=== PATIENT | female | born 1955 | race Caucasian/White ===

== ENCOUNTER 2019-01-01 12:15 | Emergency (ER) | payer MEDICARE ==
[~2019-01-01] VITALS: Ht 167.6 cm; Wt 135.9 kg
[2019-01-01] MEDS ORDERED: LYRICA100 MG PO (12:57)
[2019-01-01] MEDS ORDERED: PROTONIX TR40 M1 PO (12:58)
[2019-01-01 12:59] LABS: BASO # 0.1 (0.02-0.10); EOS # 0.8 (0.04-0.40); EOS % 7.8 % (1.0-5.0); HEMATOCRIT 42.4 % (37.0-47.0); HEMOGLOBIN 12.6 g/dL (12.5-16.0); LYMPH# 2.5 (1.50-4.00); MEAN CELL VOLUME 93 fl (78-100); MEAN CORPUSCULAR HEMOGLOBIN 28 pg (27-31); MEAN CORPUSCULAR HGB CONC 30 g/dL (33-37); MEAN PLATELET VOLUME 10.2 fl (7.4-10.4); MONO # 0.7 (0.20-0.80); NEU # 5.7 (1.40-6.50); PLATELET COUNT 265 K/mm3 (130-400); RED BLOOD COUNT 4.54 M/mm3 (4.10-5.30); RED CELL DISTRIBUTION WIDTH 14.2 % (11.5-14.5); WHITE BLOOD COUNT 9.7 K/mm3 (4.8-10.8)
[2019-01-01] MEDS ORDERED: ESTRACE1 M1 PO (12:59)
[2019-01-01] MEDS ORDERED: BACLOFEN20 MG PO (13:01)
[2019-01-01] MEDS ORDERED: LINZESS290 MCG PO (13:02)
[2019-01-01] MEDS ORDERED: BENADRYL25 M2 PO (13:02)
[2019-01-01] MEDS ORDERED: METOPROLOL TAR100 M1 PO (13:04)
[2019-01-01] MEDS ORDERED: BENAZEPRIL40 MG PO (13:04)
[2019-01-01] MEDS ORDERED: NORVASC 10MG10 MG PO (13:04)
[2019-01-01 13:12] LABS: ALBUMIN 3.7 g/dL (3.5-5.0); CALCIUM 9.3 mg/dL (8.4-10.2); POTASSIUM 4.6 mmol/L (3.6-5.0); TOTAL BILIRUBIN 0.4 mg/dL (0.2-1.3); TOTAL PROTEIN 7.1 g/dL (6.3-8.2)
[2019-01-01 13:21] LABS: TROPONIN-I < 0.03 ng/mL (0.00-0.06)
[2019-01-01] MEDS ORDERED: ASPIRIN E.C. 8181 MG PO (13:54)
[2019-01-01] MEDS ORDERED: PRISTIQ100 MG PO ×2 (13:54→14:09)
[2019-01-01] MEDS ORDERED: MELATONIN10 M2 PO (13:55)
[2019-01-01] MEDS ORDERED: GARLIC OIL1000 M1 PO (13:55)
[2019-01-01] MEDS ORDERED: LIPITOR20 M2 PO (13:56)
[2019-01-01] MEDS ORDERED: HAIR SKIN NAIL1 EACH PO (13:56)
[2019-01-01] MEDS ORDERED: LASIX40 M1 PO (13:57)
[2019-01-01] MEDS ORDERED: [UNRECOGNIZED DRUG - OTHER] PO (13:58)
[2019-01-01] MEDS ORDERED: LOTREL 10 MG-401 CAP PO (13:58)
[2019-01-01] MEDS ORDERED: DETROL LA 4MG4 MG PO ×2 (13:59→14:09)
[2019-01-01] MEDS ORDERED: SYNTHROID112 MCG PO (13:59)
[2019-01-01] MEDS ORDERED: MULTIVITAMIN1 SGL PO (14:00)
[2019-01-01] MEDS ORDERED: CO Q-10400 MG PO (14:00)
[2019-01-01 14:38] VITALS: BP 120/72
== END 2019-01-01 15:15 | disposition home or self-care (01) ==
LOC: ED 12:15
PROVIDERS: Nurse Practitioner Primary Care
DX: R07.89 Other chest pain (principal); I25.10 Atherosclerotic heart disease of native coronary artery without angina pectoris; K21.9 Gastro-esophageal reflux disease without esophagitis; I10 Essential (primary) hypertension; Z76.0 Encounter for issue of repeat prescription; Z79.82 Long term (current) use of aspirin; Z90.49 Acquired absence of other specified parts of digestive tract; Z90.710 Acquired absence of both cervix and uterus
CPT/HCPCS: J2405

== ENCOUNTER → 2019-01-02 | Outpatient (CLI) | payer MEDICARE ==
[2019-01-01 14:38] VITALS: BP 120/72
[~2019-01-02] MED LIST: ASPIRIN E.C. 8181 MG PO; BACLOFEN20 MG PO; BENADRYL25 M2 PO; BENAZEPRIL40 MG PO; CO Q-10400 MG PO; DETROL LA 4MG4 MG PO; ESTRACE1 M1 PO; GARLIC OIL1000 M1 PO; HAIR SKIN NAIL1 EACH PO; LASIX40 M1 PO; LINZESS290 MCG PO; LIPITOR20 M2 PO; LOTREL 10 MG-401 CAP PO; LYRICA100 MG PO; MELATONIN10 M2 PO; METOPROLOL TAR100 M1 PO; MULTIVITAMIN1 SGL PO; NORVASC 10MG10 MG PO; PRISTIQ100 MG PO; PROTONIX TR40 M1 PO; SYNTHROID112 MCG PO; [UNRECOGNIZED DRUG - OTHER] PO
[2019-01-02 17:26] LABS: BASO # 0.1 (0.02-0.10); EOS % 7.3 % (1.0-5.0); HEMATOCRIT 45.1 % (37.0-47.0); HEMOGLOBIN 13.3 g/dL (12.5-16.0); LYMPH# 3.5 (1.50-4.00); MEAN CELL VOLUME 92 fl (78-100); MEAN CORPUSCULAR HEMOGLOBIN 27 pg (27-31); MEAN CORPUSCULAR HGB CONC 30 g/dL (33-37); MEAN PLATELET VOLUME 10.3 fl (7.4-10.4); MONO # 0.9 (0.20-0.80); PLATELET COUNT 337 K/mm3 (130-400); RED BLOOD COUNT 4.88 M/mm3 (4.10-5.30); RED CELL DISTRIBUTION WIDTH 14.3 % (11.5-14.5)
[2019-01-02 17:39] LABS: EOS # 1.1 (0.04-0.40); NEU # 9.4 (1.40-6.50)
[2019-01-02 17:40] LABS: ALBUMIN 4.1 g/dL (3.5-5.0); AST-SGOT 25 U/L (14-36); CALCIUM 9.6 mg/dL (8.4-10.2); CARBON DIOXIDE 30 mmol/L (22-30); GLUCOSE 114 mg/dL (65-105); POTASSIUM 4.1 mmol/L (3.6-5.0); SODIUM 142 mmol/L (137-145); TOTAL BILIRUBIN 0.4 mg/dL (0.2-1.3); TOTAL PROTEIN 7.7 g/dL (6.3-8.2)
[2019-01-02 17:43] LABS: ALT/SGPT < 3 U/L (9-52)
== END ==
LOC: LAB 16:42
PROVIDERS: Family Medicine
DX: M48.54XA Collapsed vertebra, not elsewhere classified, thoracic region, initial encounter for fracture (principal); M47.812 Spondylosis without myelopathy or radiculopathy, cervical region; M47.817 Spondylosis without myelopathy or radiculopathy, lumbosacral region; M43.17 Spondylolisthesis, lumbosacral region; M48.061 Spinal stenosis, lumbar region without neurogenic claudication; G35 Multiple sclerosis; Z00.00 Encounter for general adult medical examination without abnormal findings; R53.83 Other fatigue; E55.9 Vitamin D deficiency, unspecified; Z86.39 Personal history of other endocrine, nutritional and metabolic disease

== ENCOUNTER → 2019-01-08 | Outpatient (CLI) | payer MEDICARE ==
[2019-01-01 14:38] VITALS: BP 120/72
[~2019-01-08] MED LIST changes: +AMOXICILLIN875 MG PO; +NORCO 325 MG-51 TA1 PO
== END ==
LOC: VAS 16:33 → RAD 16:45
DX: R07.9 Chest pain, unspecified (principal); I27.20 Pulmonary hypertension, unspecified; Z86.79 Personal history of other diseases of the circulatory system

== ENCOUNTER 2019-02-15 21:31 | Emergency (ER) | payer MEDICARE, MEDICAID ==
[~2019-02-15] VITALS: Ht 167.6 cm; Wt 135.9 kg
[~2019-02-15 21:31] MED LIST changes: -AMOXICILLIN875 MG PO; -NORCO 325 MG-51 TA1 PO
[2019-02-15] MEDS ORDERED: AMOXICILLIN875 MG PO (21:48)
[2019-02-15] MEDS ORDERED: NORCO 325 MG-51 TA1 PO (23:35)
[2019-02-15 23:55] VITALS: BP 141/84
== END 2019-02-15 23:55 | disposition home or self-care (01) ==
LOC: ED 21:31
DX: S82.832A Other fracture of upper and lower end of left fibula, initial encounter for closed fracture (principal); I10 Essential (primary) hypertension; N39.0 Urinary tract infection, site not specified; Z79.82 Long term (current) use of aspirin; X50.1XXA Overexertion from prolonged static or awkward postures, initial encounter; Y92.003 Bedroom of unspecified non-institutional (private) residence as the place of occurrence of the external cause
CPT/HCPCS: L4386

== ENCOUNTER 2019-04-30 14:56 | Emergency (ER) | payer MEDICARE, MEDICAID ==
[~2019-04-30] VITALS: Wt 138.9 kg
[~2019-04-30 14:56] MED LIST changes: +AMOXICILLIN875 MG PO; +NORCO 325 MG-51 TA1 PO
[2019-04-30 15:53] LABS: HEMATOCRIT 40.4 % (37.0-47.0); HEMOGLOBIN 12.1 g/dL (12.5-16.0); LYMPH# 2.6 (1.50-4.00); MEAN CELL VOLUME 96 fl (78-100); MEAN CORPUSCULAR HEMOGLOBIN 29 pg (27-31); MEAN CORPUSCULAR HGB CONC 30 g/dL (33-37); MEAN PLATELET VOLUME 9.9 fl (7.4-10.4); MONO # 0.7 (0.20-0.80); NEU # 6.9 (1.40-6.50); PLATELET COUNT 240 K/mm3 (130-400); RED BLOOD COUNT 4.22 M/mm3 (4.10-5.30); RED CELL DISTRIBUTION WIDTH 13.7 % (11.5-14.5); WHITE BLOOD COUNT 10.9 K/mm3 (4.8-10.8)
[2019-04-30 16:09] LABS: ALBUMIN 3.4 g/dL (3.4-4.8); ALT/SGPT 16 U/L (0-55); AST-SGOT 16 U/L (5-34); CALCIUM 9.2 mg/dL (8.3-10.5); CARBON DIOXIDE 29 mmol/L (23-31); GLUCOSE 155 mg/dL (65-105); POTASSIUM 3.5 mmol/L (3.5-5.1); SODIUM 142 mmol/L (136-145); TOTAL BILIRUBIN 0.2 mg/dL (0.2-1.2); TOTAL PROTEIN 6.4 g/dL (6.2-8.1)
[2019-04-30 16:10] LABS: EOS # 0.7 (0.04-0.40)
[2019-04-30 16:18] LABS: PROTHROMBIN TIME 8.8 SECONDS (9.0-12.0)
[2019-04-30 16:28] LABS: TROPONIN-I < 0.03 ng/mL (<0.030)
[2019-04-30 17:32] LABS: D-DIMER 0.51 mg/L FEU (0.15-0.50)
[2019-04-30 21:46] VITALS: BP 148/81
== END 2019-04-30 21:50 | disposition short-term general hospital (02) ==
LOC: ED 14:56
PROVIDERS: Nurse Practitioner Primary Care
DX: I21.4 Non-ST elevation (NSTEMI) myocardial infarction (principal); I10 Essential (primary) hypertension; K21.9 Gastro-esophageal reflux disease without esophagitis; F32.9 Major depressive disorder, single episode, unspecified; F41.9 Anxiety disorder, unspecified; G43.909 Migraine, unspecified, not intractable, without status migrainosus; G47.33 Obstructive sleep apnea (adult) (pediatric); G35 Multiple sclerosis; Z90.49 Acquired absence of other specified parts of digestive tract; Z90.710 Acquired absence of both cervix and uterus; Z87.891 Personal history of nicotine dependence; Z86.73 Personal history of transient ischemic attack (TIA), and cerebral infarction without residual deficits
CPT/HCPCS: J1885; J2060; Q9967

== ENCOUNTER → 2019-05-28 | Day surgery (SDC) | payer MEDICARE, MEDICAID ==
[2019-04-30 21:46] VITALS: BP 148/81
== END ==
LOC: MSO 07:35
DX: K29.50 Unspecified chronic gastritis without bleeding (principal); K25.9 Gastric ulcer, unspecified as acute or chronic, without hemorrhage or perforation; K44.9 Diaphragmatic hernia without obstruction or gangrene; R13.13 Dysphagia, pharyngeal phase; E66.01 Morbid (severe) obesity due to excess calories; Z68.41 Body mass index [BMI] 40.0-44.9, adult; I10 Essential (primary) hypertension; E07.9 Disorder of thyroid, unspecified; M81.0 Age-related osteoporosis without current pathological fracture; G35 Multiple sclerosis; G43.909 Migraine, unspecified, not intractable, without status migrainosus; Z90.49 Acquired absence of other specified parts of digestive tract; Z90.710 Acquired absence of both cervix and uterus; F41.9 Anxiety disorder, unspecified; F32.9 Major depressive disorder, single episode, unspecified; Z79.899 Other long term (current) drug therapy; Z79.82 Long term (current) use of aspirin; H40.9 Unspecified glaucoma; Z87.891 Personal history of nicotine dependence; Z80.9 Family history of malignant neoplasm, unspecified; Z83.3 Family history of diabetes mellitus; Z82.49 Family history of ischemic heart disease and other diseases of the circulatory system; Z88.1 Allergy status to other antibiotic agents
CPT/HCPCS: 00731; J2704; J3010; J7120

== ENCOUNTER → 2019-09-10 | Outpatient (CLI) | payer MEDICARE, MEDICAID | LOC: LAB 10:27 | DX: I25.10 Atherosclerotic heart disease of native coronary artery without angina pectoris (principal); Z86.39 Personal history of other endocrine, nutritional and metabolic disease ==

== ENCOUNTER → 2019-09-17 | Outpatient (CLI) | payer MEDICARE, MEDICAID ==
[2019-09-17 10:31] LABS: EOS # 0.1 (0.04-0.40); HEMATOCRIT 42.2 % (37.0-47.0); HEMOGLOBIN 13.3 g/dL (12.5-16.0); LYMPH# 2.3 (1.50-4.00); MEAN CELL VOLUME 97 fl (78-100); MEAN CORPUSCULAR HEMOGLOBIN 31 pg (27-31); MEAN CORPUSCULAR HGB CONC 32 g/dL (33-37); MEAN PLATELET VOLUME 9.1 fl (7.4-10.4); MONO # 0.7 (0.20-0.80); NEU # 8.9 (1.40-6.50); PLATELET COUNT 297 K/mm3 (130-400); RED BLOOD COUNT 4.34 M/mm3 (4.10-5.30); RED CELL DISTRIBUTION WIDTH 13.7 % (11.5-14.5); WHITE BLOOD COUNT 12.1 K/mm3 (4.8-10.8)
[2019-09-17 10:42] LABS: ALBUMIN 3.3 g/dL (3.4-4.8); POTASSIUM 4.2 mmol/L (3.5-5.1)
[2019-09-17 10:43] LABS: CALCIUM 9.8 mg/dL (8.3-10.5)
[2019-09-17 10:45] LABS: TOTAL PROTEIN 6.5 g/dL (6.2-8.1)
[2019-09-17 10:46] LABS: TOTAL BILIRUBIN 0.4 mg/dL (0.2-1.2)
== END ==
LOC: LAB 10:15
PROVIDERS: Family Medicine
DX: Z01.818 Encounter for other preprocedural examination (principal)

== ENCOUNTER 2019-10-22 13:58 | Observation (INO) | payer MEDICARE, MEDICAID ==
[~2019-10-22] VITALS: Ht 167.6 cm; Wt 123.2 kg
[2019-10-22 14:22] VITALS: BP 117/81
[2019-10-22 15:11] LABS: ALBUMIN 3.4 g/dL (3.4-4.8)
[2019-10-22 15:12] LABS: POTASSIUM 4.2 mmol/L (3.5-5.1)
[2019-10-22 15:13] LABS: CALCIUM 9.5 mg/dL (8.3-10.5)
[2019-10-22 15:14] LABS: TOTAL PROTEIN 6.7 g/dL (6.2-8.1)
[2019-10-22 15:16] LABS: TOTAL BILIRUBIN 0.5 mg/dL (0.2-1.2)
[2019-10-22 15:35] LABS: EOS # 0.1 (0.04-0.40); EOS % 0.6 % (1.0-5.0); HEMATOCRIT 42.2 % (37.0-47.0); HEMOGLOBIN 13.3 g/dL (12.5-16.0); LYMPH# 2.5 (1.50-4.00); MEAN CELL VOLUME 100 fl (78-100); MEAN CORPUSCULAR HEMOGLOBIN 32 pg (27-31); MEAN CORPUSCULAR HGB CONC 32 g/dL (33-37); MEAN PLATELET VOLUME 9.2 fl (7.4-10.4); MONO # 0.8 (0.20-0.80); PLATELET COUNT 283 K/mm3 (130-400); RED BLOOD COUNT 4.22 M/mm3 (4.10-5.30); WHITE BLOOD COUNT 13.9 K/mm3 (4.8-10.8)
[2019-10-22 15:39] VITALS: BP 124/80
[2019-10-22 15:40] LABS: NEU # 10.6 (1.40-6.50)
[2019-10-22 17:12] VITALS: BP 138/82
[2019-10-22] MEDS ORDERED: NORVASC 10MG10 MG PO (18:09)
[2019-10-22] MEDS ORDERED: TRAMADOL 50 MG TAB PO (18:09)
[2019-10-22] MEDS ORDERED: LEVOTHYROXIN0.137 MG PO (20:42)
[2019-10-22] MEDS ORDERED: FISH OIL1 IU PO (20:43)
[2019-10-22] MEDS ORDERED: GOOD NEIGHBOR500 M2 PO (20:45)
[2019-10-22] MEDS ORDERED: CARVEDILOL25 MG PO (20:48)
[2019-10-22 22:15] LABS: URINE APPEARANCE CLOUDY; URINE BILIRUBIN NEGATIVE (NEGATIVE); URINE BLOOD NEGATIVE (NEGATIVE); URINE COLOR YELLOW; URINE GLUCOSE NEGATIVE (NEGATIVE); URINE KETONE NEGATIVE (NEGATIVE); URINE LEUKOCYTE ESTERASE NEGATIVE (NEGATIVE); URINE NITRATE NEGATIVE (NEGATIVE); URINE PROTEIN(semi-quant) TRACE mg/dL (NEGATIVE); URINE UROBILINOGEN NORMAL (NORMAL); URINE WBC 0-1 /hpf (0-3)
[2019-10-22 22:16] LABS: URINE MUCUS PRESENT (NOT PRESENT)
[2019-10-22 22:44] VITALS: BP 132/84
[2019-10-23 01:54] VITALS: BP 127/86
[2019-10-23 05:36] VITALS: BP 121/78
[2019-10-23 10:20] VITALS: BP 120/81
[2019-10-23 14:15] VITALS: BP 141/91
[2019-10-23 18:00] VITALS: BP 120/79
== END 2019-10-23 11:42 | disposition other institution (70) ==
LOC: MED/SURG 13:58
PROVIDERS: ADMIT Family Medicine
DX: R29.818 Other symptoms and signs involving the nervous system (principal); R53.81 Other malaise; T81.49XA Infection following a procedure, other surgical site, initial encounter; I25.10 Atherosclerotic heart disease of native coronary artery without angina pectoris; I10 Essential (primary) hypertension; E03.9 Hypothyroidism, unspecified; F32.9 Major depressive disorder, single episode, unspecified; F41.9 Anxiety disorder, unspecified; M85.80 Other specified disorders of bone density and structure, unspecified site; M51.36 Other intervertebral disc degeneration, lumbar region; K58.0 Irritable bowel syndrome with diarrhea; R32 Unspecified urinary incontinence; H40.9 Unspecified glaucoma; G43.909 Migraine, unspecified, not intractable, without status migrainosus; R60.9 Edema, unspecified; E78.5 Hyperlipidemia, unspecified; G35 Multiple sclerosis; E66.9 Obesity, unspecified; Z79.899 Other long term (current) drug therapy; Z88.1 Allergy status to other antibiotic agents; Z88.2 Allergy status to sulfonamides; Z88.8 Allergy status to other drugs, medicaments and biological substances; Z91.048 Other nonmedicinal substance allergy status
CPT/HCPCS: A4216; G0378; G0379; J0696; J1650; J2270; J2930

== ENCOUNTER 2019-10-23 12:04 | Inpatient (IN) | payer MEDICARE ==
[~2019-10-23] VITALS: Ht 167.6 cm; Wt 124.5 kg
[~2019-10-23 12:04] MED LIST changes: +CARVEDILOL25 MG PO; +FISH OIL1 IU PO; +GOOD NEIGHBOR500 M2 PO; +LEVOTHYROXIN0.137 MG PO; +TRAMADOL 50 MG TAB PO
[2019-10-23 13:02] VITALS: BP 117/75
[2019-10-23 13:20] VITALS: BP 117/75
[2019-10-23 18:03] VITALS: BP 120/79
[2019-10-23 22:07] VITALS: BP 135/84
[2019-10-24 02:10] VITALS: BP 133/96
[2019-10-24 05:49] VITALS: BP 142/98
[2019-10-24 06:23] LABS: HEMOGLOBIN 12.8 g/dL (12.5-16.0); MEAN CELL VOLUME 98 fl (78-100); MEAN CORPUSCULAR HEMOGLOBIN 31 pg (27-31); MEAN CORPUSCULAR HGB CONC 32 g/dL (33-37); MEAN PLATELET VOLUME 9.4 fl (7.4-10.4); PLATELET COUNT 260 K/mm3 (130-400); RED CELL DISTRIBUTION WIDTH 13.5 % (11.5-14.5); WHITE BLOOD COUNT 12.1 K/mm3 (4.8-10.8)
[2019-10-24 06:30] LABS: ALBUMIN 3.3 g/dL (3.4-4.8)
[2019-10-24 06:31] LABS: CALCIUM 9.1 mg/dL (8.3-10.5)
[2019-10-24 06:32] LABS: TOTAL PROTEIN 6.1 g/dL (6.2-8.1)
[2019-10-24 06:34] LABS: TOTAL BILIRUBIN 0.4 mg/dL (0.2-1.2)
[2019-10-24 06:47] LABS: LYMPHOCYTE 4 % (20-51); MONOCYTE 2 % (3-10); NEUTROPHILS 94 % (42-75)
[2019-10-24 07:33] LABS: ERYTHROCYTE SEDIMENTATION RATE 33 mm/hr (0-30)
[2019-10-24 10:20] VITALS: BP 122/77
[2019-10-24 14:19] VITALS: BP 140/92
[2019-10-24 18:51] VITALS: BP 128/66; BP 137/92
[2019-10-24 22:16] VITALS: BP 156/100
[2019-10-25 02:37] VITALS: BP 161/98
[2019-10-25 05:57] VITALS: BP 141/99
[2019-10-25 06:49] LABS: HEMATOCRIT 46.4 % (37.0-47.0); MEAN CELL VOLUME 97 fl (78-100); MEAN CORPUSCULAR HEMOGLOBIN 31 pg (27-31); MEAN CORPUSCULAR HGB CONC 32 g/dL (33-37); MEAN PLATELET VOLUME 9.3 fl (7.4-10.4); PLATELET COUNT 357 K/mm3 (130-400); RED BLOOD COUNT 4.77 M/mm3 (4.10-5.30); RED CELL DISTRIBUTION WIDTH 13.6 % (11.5-14.5); WHITE BLOOD COUNT 16.9 K/mm3 (4.8-10.8)
[2019-10-25 06:59] LABS: ALBUMIN 3.9 g/dL (3.4-4.8); POTASSIUM 4.1 mmol/L (3.5-5.1)
[2019-10-25 07:00] LABS: CALCIUM 9.8 mg/dL (8.3-10.5)
[2019-10-25 07:01] LABS: TOTAL PROTEIN 7.4 g/dL (6.2-8.1)
[2019-10-25 07:03] LABS: TOTAL BILIRUBIN 0.4 mg/dL (0.2-1.2)
[2019-10-25 07:05] LABS: LYMPHOCYTE 6 % (20-51); MONOCYTE 4 % (3-10); NEUTROPHILS 90 % (42-75)
[2019-10-25 10:48] VITALS: BP 147/80
[2019-10-25 14:20] VITALS: BP 139/91
[2019-10-25 17:19] VITALS: BP 138/87
[2019-10-25 22:05] VITALS: BP 144/90
[2019-10-26 01:56] VITALS: BP 137/86
[2019-10-26 05:53] VITALS: BP 152/97
[2019-10-26 09:55] VITALS: BP 159/94
[2019-10-26 13:57] VITALS: BP 147/82
[2019-10-26 18:15] VITALS: BP 148/86
[2019-10-26 21:50] VITALS: BP 157/96
[2019-10-27 01:16] VITALS: BP 158/90
[2019-10-27 05:56] VITALS: BP 158/99
[2019-10-27 07:52] LABS: HEMATOCRIT 41.2 % (37.0-47.0); HEMOGLOBIN 13.8 g/dL (12.5-16.0); MEAN CELL VOLUME 95 fl (78-100); MEAN CORPUSCULAR HEMOGLOBIN 32 pg (27-31); MEAN CORPUSCULAR HGB CONC 34 g/dL (33-37); MEAN PLATELET VOLUME 9.2 fl (7.4-10.4); PLATELET COUNT 284 K/mm3 (130-400); RED BLOOD COUNT 4.34 M/mm3 (4.10-5.30); RED CELL DISTRIBUTION WIDTH 13.3 % (11.5-14.5); WHITE BLOOD COUNT 10.8 K/mm3 (4.8-10.8)
[2019-10-27 08:05] LABS: ALBUMIN 3.6 g/dL (3.4-4.8)
[2019-10-27 08:06] LABS: POTASSIUM 3.7 mmol/L (3.5-5.1)
[2019-10-27 08:08] LABS: TOTAL PROTEIN 6.8 g/dL (6.2-8.1)
[2019-10-27 08:10] LABS: TOTAL BILIRUBIN 0.5 mg/dL (0.2-1.2)
[2019-10-27 08:44] LABS: BAND 1 % (0-10); LYMPHOCYTE 7 % (20-51); MONOCYTE 7 % (3-10); NEUTROPHILS 84 % (42-75)
[2019-10-27 09:22] LABS: CALCIUM 9.4 mg/dL (8.3-10.5)
[2019-10-27 10:22] VITALS: BP 162/100
[2019-10-27 14:29] VITALS: BP 117/79
[2019-10-27 18:00] VITALS: BP 138/90
[2019-10-27 22:50] VITALS: BP 164/98
[2019-10-28] VITALS (7 sets, daily range): BP systolic 138–162; BP diastolic 92–107
[2019-10-28 08:47] LABS: HEMATOCRIT 44.5 % (37.0-47.0); HEMOGLOBIN 14.8 g/dL (12.5-16.0); MEAN CELL VOLUME 95 fl (78-100); MEAN CORPUSCULAR HEMOGLOBIN 31 pg (27-31); MEAN CORPUSCULAR HGB CONC 33 g/dL (33-37); MEAN PLATELET VOLUME 9.3 fl (7.4-10.4); PLATELET COUNT 321 K/mm3 (130-400); RED BLOOD COUNT 4.71 M/mm3 (4.10-5.30); RED CELL DISTRIBUTION WIDTH 13.1 % (11.5-14.5); WHITE BLOOD COUNT 13.2 K/mm3 (4.8-10.8)
[2019-10-28 08:52] LABS: ALBUMIN 3.7 g/dL (3.4-4.8); SODIUM 138 mmol/L (136-145)
[2019-10-28 08:53] LABS: CALCIUM 9.5 mg/dL (8.3-10.5)
[2019-10-28 08:55] LABS: GLUCOSE 184 mg/dL (65-105)
[2019-10-28 08:56] LABS: CARBON DIOXIDE 24 mmol/L (23-31)
[2019-10-28 08:57] LABS: TOTAL BILIRUBIN 0.8 mg/dL (0.2-1.2)
[2019-10-28 09:00] LABS: AST-SGOT 17 U/L (5-34)
[2019-10-28 09:01] LABS: ALT/SGPT 85 U/L (0-55)
[2019-10-28 09:05] LABS: BAND 1 % (0-10); LYMPHOCYTE 8 % (20-51); MONOCYTE 6 % (3-10); NEUTROPHILS 85 % (42-75)
[2019-10-28 09:51] LABS: ERYTHROCYTE SEDIMENTATION RATE 18 mm/hr (0-30)
[2019-10-29] VITALS (7 sets, daily range): BP systolic 114–186; BP diastolic 75–109
[2019-10-30 01:50] VITALS: BP 144/98
[2019-10-30 05:55] VITALS: BP 159/97
[2019-10-30 10:12] VITALS: BP 147/95
[2019-10-30] MEDS ORDERED: NORCO 325 MG-7.1 TA1 PO (11:59)
[2019-10-30] MEDS ORDERED: PRISTIQ100 MG PO (12:00)
[2019-10-30] MEDS ORDERED: AMBIEN10 MG PO (12:01)
[2019-10-30] MEDS ORDERED: PREDNISONE10 MG PO (12:06)
[2019-10-30] MEDS ORDERED: LEVOTHYROXINE100 MC1 PO (12:07)
[2019-10-30] MEDS ORDERED: CLEOCIN HCL300 MG PO (12:08)
[2019-10-30 14:15] VITALS: BP 143/93
== END 2019-10-30 14:00 | disposition home health service (06) | DRG 59 ==
LOC: MED/SURG 12:04
PROVIDERS: Family Medicine; Nurse Practitioner; ADMIT Nurse Practitioner Primary Care
DX: G35 Multiple sclerosis (principal); L03.90 Cellulitis, unspecified; T81.40XA Infection following a procedure, unspecified, initial encounter; R53.81 Other malaise; S30.0XXA Contusion of lower back and pelvis, initial encounter; M54.5 Low back pain; E03.9 Hypothyroidism, unspecified; E78.5 Hyperlipidemia, unspecified; I10 Essential (primary) hypertension; I25.10 Atherosclerotic heart disease of native coronary artery without angina pectoris; F32.9 Major depressive disorder, single episode, unspecified; G47.00 Insomnia, unspecified; E66.9 Obesity, unspecified; M19.90 Unspecified osteoarthritis, unspecified site; F41.9 Anxiety disorder, unspecified; M85.80 Other specified disorders of bone density and structure, unspecified site; G43.909 Migraine, unspecified, not intractable, without status migrainosus; H40.9 Unspecified glaucoma; M51.36 Other intervertebral disc degeneration, lumbar region; K58.0 Irritable bowel syndrome with diarrhea; R32 Unspecified urinary incontinence; G47.33 Obstructive sleep apnea (adult) (pediatric); J30.9 Allergic rhinitis, unspecified; Z79.890 Hormone replacement therapy; Z87.891 Personal history of nicotine dependence
CPT/HCPCS: A4216; J0696; J1650; J2060; J2270; J2930; J3301; Q9967

== ENCOUNTER 2019-10-31 18:10 | Inpatient (IN) | payer MEDICARE, MEDICAID ==
[~2019-10-31] VITALS: Ht 167.6 cm; Wt 122.7 kg
[~2019-10-31 18:10] MED LIST changes: +AMBIEN10 MG PO; +CLEOCIN HCL300 MG PO; +LEVOTHYROXINE100 MC1 PO; +NORCO 325 MG-7.1 TA1 PO; +PREDNISONE10 MG PO
[2019-10-31 18:24] VITALS: BP 156/96
[2019-10-31 19:02] LABS: HEMATOCRIT 42.3 % (37.0-47.0); HEMOGLOBIN 14.1 g/dL (12.5-16.0); MEAN CELL VOLUME 96 fl (78-100); MEAN CORPUSCULAR HEMOGLOBIN 32 pg (27-31); MEAN CORPUSCULAR HGB CONC 33 g/dL (33-37); MEAN PLATELET VOLUME 9.7 fl (7.4-10.4); PLATELET COUNT 245 K/mm3 (130-400); RED CELL DISTRIBUTION WIDTH 12.7 % (11.5-14.5); WHITE BLOOD COUNT 17.1 K/mm3 (4.8-10.8)
[2019-10-31 19:04] LABS: ALBUMIN 3.4 g/dL (3.4-4.8); POTASSIUM 3.9 mmol/L (3.5-5.1)
[2019-10-31 19:06] LABS: CALCIUM 8.9 mg/dL (8.3-10.5)
[2019-10-31 19:07] LABS: TOTAL PROTEIN 6.2 g/dL (6.2-8.1)
[2019-10-31 19:09] LABS: TOTAL BILIRUBIN 0.8 mg/dL (0.2-1.2)
[2019-10-31 19:22] LABS: LYMPHOCYTE 6 % (20-51); MONOCYTE 4 % (3-10); NEUTROPHILS 90 % (42-75)
[2019-11-01 06:04] VITALS: BP 140/87
[2019-11-01 18:23] VITALS: BP 124/85
[2019-11-02 06:13] LABS: PH-URINE 5.5 (5.0 - 8.0); URINE APPEARANCE HAZY; URINE BILIRUBIN 1+ (NEGATIVE); URINE BLOOD TRACE (NEGATIVE); URINE COLOR YELLOW; URINE GLUCOSE NEGATIVE (NEGATIVE); URINE KETONE NEGATIVE (NEGATIVE); URINE LEUKOCYTE ESTERASE NEGATIVE (NEGATIVE); URINE MUCUS PRESENT (NOT PRESENT); URINE NITRATE NEGATIVE (NEGATIVE); URINE PROTEIN(semi-quant) TRACE mg/dL (NEGATIVE); URINE UROBILINOGEN NORMAL (NORMAL)
[2019-11-02 06:20] VITALS: BP 147/88
[2019-11-02 14:37] VITALS: BP 126/84
[2019-11-02 16:50] VITALS: BP 126/84
== END 2019-11-02 17:15 | DRG 948 ==
LOC: MED/SURG 18:10
PROVIDERS: Nurse Practitioner Family; ADMIT Physician Assistant
DX: R53.81 Other malaise (principal); L03.90 Cellulitis, unspecified; I25.10 Atherosclerotic heart disease of native coronary artery without angina pectoris; E66.9 Obesity, unspecified; M54.5 Low back pain; G35 Multiple sclerosis; E03.9 Hypothyroidism, unspecified; I10 Essential (primary) hypertension; F32.9 Major depressive disorder, single episode, unspecified; F41.9 Anxiety disorder, unspecified; M85.80 Other specified disorders of bone density and structure, unspecified site; G43.909 Migraine, unspecified, not intractable, without status migrainosus; H40.9 Unspecified glaucoma; G47.33 Obstructive sleep apnea (adult) (pediatric); J30.9 Allergic rhinitis, unspecified; G47.00 Insomnia, unspecified; M19.90 Unspecified osteoarthritis, unspecified site
CPT/HCPCS: J7512

== ENCOUNTER → 2019-12-06 | Outpatient (CLI) | payer MEDICARE, MEDICAID ==
[2019-12-06 12:32] LABS: EOS # 0.1 (0.04-0.40); EOS % 0.4 % (1.0-5.0); HEMATOCRIT 37.6 % (37.0-47.0); HEMOGLOBIN 12.2 g/dL (12.5-16.0); MEAN CELL VOLUME 101 fl (78-100); MEAN CORPUSCULAR HEMOGLOBIN 33 pg (27-31); MEAN CORPUSCULAR HGB CONC 32 g/dL (33-37); MEAN PLATELET VOLUME 8.9 fl (7.4-10.4); MONO # 0.7 (0.20-0.80); NEU # 8.3 (1.40-6.50); PLATELET COUNT 285 K/mm3 (130-400); RED BLOOD COUNT 3.72 M/mm3 (4.10-5.30); RED CELL DISTRIBUTION WIDTH 14.5 % (11.5-14.5); WHITE BLOOD COUNT 11.2 K/mm3 (4.8-10.8)
[2019-12-06 12:41] LABS: ALBUMIN 3.3 g/dL (3.4-4.8); POTASSIUM 3.4 mmol/L (3.5-5.1)
[2019-12-06 12:42] LABS: CALCIUM 9.6 mg/dL (8.3-10.5)
[2019-12-06 12:44] LABS: TOTAL PROTEIN 6.3 g/dL (6.2-8.1)
[2019-12-06 12:45] LABS: TOTAL BILIRUBIN 0.4 mg/dL (0.2-1.2)
== END ==
LOC: LAB 12:10
PROVIDERS: Family Medicine
DX: J18.9 Pneumonia, unspecified organism (principal); E11.9 Type 2 diabetes mellitus without complications

== ENCOUNTER → 2020-01-09 | Outpatient (CLI) | payer MEDICARE, MEDICAID ==
[2020-01-09 09:47] LABS: EOS # 0.2 (0.04-0.40); EOS % 1.6 % (1.0-5.0); HEMATOCRIT 38.3 % (37.0-47.0); HEMOGLOBIN 11.9 g/dL (12.5-16.0); LYMPH# 2.3 (1.50-4.00); MEAN CELL VOLUME 107 fl (78-100); MEAN CORPUSCULAR HEMOGLOBIN 33 pg (27-31); MEAN CORPUSCULAR HGB CONC 31 g/dL (33-37); MEAN PLATELET VOLUME 8.6 fl (7.4-10.4); MONO # 0.8 (0.20-0.80); PLATELET COUNT 248 K/mm3 (130-400); RED BLOOD COUNT 3.59 M/mm3 (4.10-5.30); RED CELL DISTRIBUTION WIDTH 15.1 % (11.5-14.5); WHITE BLOOD COUNT 10.3 K/mm3 (4.8-10.8)
[2020-01-09 09:54] LABS: ALBUMIN 3.4 g/dL (3.4-4.8)
[2020-01-09 09:55] LABS: POTASSIUM 3.3 mmol/L (3.5-5.1)
[2020-01-09 09:56] LABS: CALCIUM 8.7 mg/dL (8.3-10.5)
[2020-01-09 09:57] LABS: TOTAL PROTEIN 6.1 g/dL (6.2-8.1)
[2020-01-09 09:59] LABS: TOTAL BILIRUBIN 0.4 mg/dL (0.2-1.2)
== END ==
LOC: LAB 09:33
PROVIDERS: Family Medicine
DX: I25.10 Atherosclerotic heart disease of native coronary artery without angina pectoris (principal); R73.9 Hyperglycemia, unspecified

== ENCOUNTER → 2020-07-09 | Outpatient (CLI) | payer MEDICARE, MEDICAID ==
[2020-07-09 16:15] LABS: EOS # 0.4 (0.04-0.40); EOS % 3.7 % (1.0-5.0); HEMATOCRIT 39.3 % (37.0-47.0); HEMOGLOBIN 11.2 g/dL (12.5-16.0); LYMPH# 2.1 (1.50-4.00); MEAN CELL VOLUME 91 fl (78-100); MEAN CORPUSCULAR HEMOGLOBIN 26 pg (27-31); MEAN PLATELET VOLUME 8.9 fl (7.4-10.4); MONO # 0.6 (0.20-0.80); NEU # 6.8 (1.40-6.50); PLATELET COUNT 250 K/mm3 (130-400); RED BLOOD COUNT 4.34 M/mm3 (4.10-5.30); RED CELL DISTRIBUTION WIDTH 15.1 % (11.5-14.5)
[2020-07-09 16:26] LABS: ALBUMIN 3.7 g/dL (3.4-4.8); MEAN CORPUSCULAR HGB CONC 29 g/dL (33-37)
[2020-07-09 16:27] LABS: POTASSIUM 4.5 mmol/L (3.5-5.1)
[2020-07-09 16:28] LABS: CALCIUM 9.4 mg/dL (8.3-10.5)
[2020-07-09 16:31] LABS: TOTAL BILIRUBIN 0.4 mg/dL (0.2-1.2)
== END ==
LOC: LAB 16:03
PROVIDERS: Physician Assistant
DX: Z01.818 Encounter for other preprocedural examination (principal); I25.10 Atherosclerotic heart disease of native coronary artery without angina pectoris; I10 Essential (primary) hypertension; G35 Multiple sclerosis; F32.9 Major depressive disorder, single episode, unspecified; Z86.39 Personal history of other endocrine, nutritional and metabolic disease

== ENCOUNTER → 2020-11-10 | Outpatient (CLI) | payer MEDICARE, MEDICAID ==
[2020-11-10 15:04] LABS: EOS # 0.5 (0.04-0.40); EOS % 5.1 % (1.0-5.0); HEMATOCRIT 32.4 % (37.0-47.0); HEMOGLOBIN 8.3 g/dL (12.5-16.0); LYMPH# 2.2 (1.50-4.00); MEAN CELL VOLUME 84 fl (78-100); MEAN PLATELET VOLUME 9.5 fl (7.4-10.4); MONO # 0.6 (0.20-0.80); NEU # 6.7 (1.40-6.50); PLATELET COUNT 333 K/mm3 (130-400); RED BLOOD COUNT 3.84 M/mm3 (4.10-5.30); RED CELL DISTRIBUTION WIDTH 17.1 % (11.5-14.5); WHITE BLOOD COUNT 10.1 K/mm3 (4.8-10.8)
[2020-11-10 15:11] LABS: MEAN CORPUSCULAR HEMOGLOBIN 22 pg (27-31); MEAN CORPUSCULAR HGB CONC 26 g/dL (33-37)
[2020-11-10 15:14] LABS: POTASSIUM 3.7 mmol/L (3.5-5.1)
[2020-11-10 15:15] LABS: CALCIUM 8.7 mg/dL (8.3-10.5)
== END ==
LOC: LAB 14:38
PROVIDERS: Family Medicine
DX: D64.9 Anemia, unspecified (principal); I10 Essential (primary) hypertension

== ENCOUNTER 2021-04-07 14:07 | Observation (INO) | payer MEDICARE, MEDICAID ==
[~2021-04-07 14:07] MED LIST changes: -GOOD NEIGHBOR500 M2 PO; +TYLENOL 325MG325 MG PO
[2021-04-07] MEDS ORDERED: LEVOTHYROXIN0.137 MG PO (14:40)
[2021-04-07 15:18] VITALS: BP 97/57
[2021-04-07 15:25] LABS: BASO # 0.04 (0.02-0.10); EOS # 0.37 (0.04-0.40); EOS % 2.9 % (1.0-5.0); HEMATOCRIT 35.1 % (37.0-47.0); HEMOGLOBIN 10.3 g/dL (12.5-16.0); LYMPH# 1.43 (1.50-4.00); MEAN CELL VOLUME 83 fl (78-100); MEAN CORPUSCULAR HEMOGLOBIN 25 pg (27-31); MEAN CORPUSCULAR HGB CONC 29 g/dL (33-37); MEAN PLATELET VOLUME 9.3 fl (7.4-10.4); MONO # 0.61 (0.20-0.80); NEU # 10.31 (1.40-6.50); PLATELET COUNT 359 K/mm3 (130-400); RED BLOOD COUNT 4.21 M/mm3 (4.10-5.30); RED CELL DISTRIBUTION WIDTH 18.2 % (11.5-14.5); WHITE BLOOD COUNT 12.8 K/mm3 (4.8-10.8)
[2021-04-07 15:40] LABS: ALBUMIN 3.6 g/dL (3.4-4.8); POTASSIUM 4.2 mmol/L (3.5-5.1)
[2021-04-07 15:42] LABS: CALCIUM 9.9 mg/dL (8.3-10.5)
[2021-04-07 15:43] LABS: TOTAL PROTEIN 7.4 g/dL (6.2-8.1)
[2021-04-07 15:44] LABS: TOTAL BILIRUBIN 0.4 mg/dL (0.2-1.2)
[2021-04-07] MEDS ORDERED: IPRATROPIUM BROM3 M1 IH (15:48)
[2021-04-07 16:06] LABS: LIPASE 14 U/L (8-78)
[2021-04-07] MEDS ORDERED: SERTRALINE HYD100 MG PO (16:24)
[2021-04-07] MEDS ORDERED: GLUCOPHAGE PO (16:24)
[2021-04-07] MEDS ORDERED: RT ALBUTEROL CC18 GM IH (16:25)
[2021-04-07 16:27] LABS: URINE APPEARANCE CLOUDY; URINE COLOR AMBER; URINE GLUCOSE NEGATIVE (NEGATIVE); URINE KETONE TR (NEGATIVE); URINE PROTEIN(semi-quant) 1+ mg/dL (NEGATIVE)
[2021-04-07] MEDS ORDERED: FOLIC ACID1 MG PO (16:27)
[2021-04-07 16:28] LABS: URINE BILIRUBIN 2+ (NEGATIVE); URINE BLOOD 50 ery/uL (NEGATIVE); URINE LEUKOCYTE ESTERASE 2+ (NEGATIVE); URINE NITRATE POSITIVE (NEGATIVE); URINE UROBILINOGEN 1 mg/dL (NORMAL); URINE WBC >50 /hpf (0-3)
[2021-04-07] MEDS ORDERED: COLACE100 M1 PO (16:28)
[2021-04-07] MEDS ORDERED: ZOFRAN4 M2 PO (16:28)
[2021-04-07] MEDS ORDERED: KETOTIFEN5 ML OU (16:29)
[2021-04-07] MEDS ORDERED: RISPERIDONE1 M2 PO (16:30)
[2021-04-07] MEDS ORDERED: RISPERIDONE0.5 M2 PO (16:31)
[2021-04-07] MEDS ORDERED: ISMO 20MG20 MG PO (16:31)
[2021-04-07] MEDS ORDERED: LISINOPRIL10 MG PO (16:32)
[2021-04-07] MEDS ORDERED: CLOPIDOGREL PO (16:32)
[2021-04-07] MEDS ORDERED: TRAMADOL 50 MG TAB PO (16:33)
[2021-04-07] MEDS ORDERED: WARFARIN SODIUM3 MG PO (16:34)
[2021-04-07] MEDS ORDERED: XANAX0.25 M1 PO (16:52)
[2021-04-07] MEDS ORDERED: AMBIEN10 MG PO (16:53)
[2021-04-07 20:00] VITALS: BP 111/69; BP 98/56
[2021-04-07] MEDS ORDERED: PROTONIX TR40 M1 PO (23:08)
[2021-04-07] MEDS ORDERED: [UNRECOGNIZED DRUG - CODE] PO (23:09)
[2021-04-08] VITALS (9 sets, daily range): BP systolic 96–143; BP diastolic 58–82
[2021-04-08 10:01] LABS: BASO # 0.05 (0.02-0.10); EOS # 0.33 (0.04-0.40); HEMATOCRIT 32.5 % (37.0-47.0); HEMOGLOBIN 9.6 g/dL (12.5-16.0); LYMPH# 1.27 (1.50-4.00); MEAN CELL VOLUME 83 fl (78-100); MEAN CORPUSCULAR HEMOGLOBIN 25 pg (27-31); MEAN CORPUSCULAR HGB CONC 30 g/dL (33-37); MONO # 0.47 (0.20-0.80); NEU # 8.81 (1.40-6.50); PLATELET COUNT 310 K/mm3 (130-400); RED CELL DISTRIBUTION WIDTH 18.1 % (11.5-14.5)
[2021-04-08 10:08] LABS: POTASSIUM 4.2 mmol/L (3.5-5.1)
[2021-04-08 10:10] LABS: CALCIUM 9.4 mg/dL (8.3-10.5)
[2021-04-09 02:20] VITALS: BP 145/89
[2021-04-09 05:49] VITALS: BP 105/71
[2021-04-09 07:48] LABS: BASO # 0.03 (0.02-0.10); EOS # 0.34 (0.04-0.40); EOS % 4.4 % (1.0-5.0); HEMATOCRIT 33.1 % (37.0-47.0); HEMOGLOBIN 9.8 g/dL (12.5-16.0); LYMPH# 1.57 (1.50-4.00); MEAN CELL VOLUME 82 fl (78-100); MEAN CORPUSCULAR HEMOGLOBIN 24 pg (27-31); MEAN CORPUSCULAR HGB CONC 30 g/dL (33-37); MEAN PLATELET VOLUME 8.9 fl (7.4-10.4); MONO # 0.51 (0.20-0.80); NEU # 5.33 (1.40-6.50); PLATELET COUNT 304 K/mm3 (130-400); RED BLOOD COUNT 4.02 M/mm3 (4.10-5.30); WHITE BLOOD COUNT 7.8 K/mm3 (4.8-10.8)
[2021-04-09 07:59] LABS: POTASSIUM 3.7 mmol/L (3.5-5.1)
[2021-04-09 08:00] LABS: CALCIUM 9.3 mg/dL (8.3-10.5)
[2021-04-09 09:16] VITALS: BP 144/83
[2021-04-09] MEDS ORDERED: PHENAZOPYRIDINE PO (11:03)
[2021-04-09] MEDS ORDERED: PROBIOTICA100 MILLIO PO (11:03)
[2021-04-09] MEDS ORDERED: SEPTRA DS 8001 TAB PO (11:03)
[2021-04-09] MEDS ORDERED: CEFDINIR300 MG PO (11:06)
== END 2021-04-09 11:20 ==
LOC: ED 14:07 → MED/SURG 18:57
PROVIDERS: Physician Assistant; ADMIT Nurse Practitioner Family
DX: N39.0 Urinary tract infection, site not specified (principal); I10 Essential (primary) hypertension; R10.9 Unspecified abdominal pain; D64.89 Other specified anemias; E11.9 Type 2 diabetes mellitus without complications; E03.9 Hypothyroidism, unspecified; G47.33 Obstructive sleep apnea (adult) (pediatric); G47.00 Insomnia, unspecified; F51.8 Other sleep disorders not due to a substance or known physiological condition; E78.5 Hyperlipidemia, unspecified; R32 Unspecified urinary incontinence; E66.9 Obesity, unspecified; K58.0 Irritable bowel syndrome with diarrhea; F32.9 Major depressive disorder, single episode, unspecified; F41.9 Anxiety disorder, unspecified; Z79.84 Long term (current) use of oral hypoglycemic drugs; Z86.718 Personal history of other venous thrombosis and embolism; Z96.9 Presence of functional implant, unspecified; Z86.711 Personal history of pulmonary embolism; Z79.01 Long term (current) use of anticoagulants; Z79.02 Long term (current) use of antithrombotics/antiplatelets; Z79.890 Hormone replacement therapy; Z87.891 Personal history of nicotine dependence
CPT/HCPCS: G0378; J0696; J1885; J7030; Q9967

== ENCOUNTER 2021-10-12 07:35 | Emergency (ER) | payer MEDICARE, MEDICAID ==
[~2021-10-12] VITALS: Wt 117.1 kg
[~2021-10-12 07:35] MED LIST changes: +CEFDINIR300 MG PO; +CLOPIDOGREL PO; +COLACE100 M1 PO; +FOLIC ACID1 MG PO; +GLUCOPHAGE PO; +IPRATROPIUM BROM3 M1 IH; +ISMO 20MG20 MG PO; +KETOTIFEN5 ML OU; +LISINOPRIL10 MG PO; +PHENAZOPYRIDINE PO; +PROBIOTICA100 MILLIO PO; +RISPERIDONE0.5 M2 PO; +RISPERIDONE1 M2 PO; +RT ALBUTEROL CC18 GM IH; +SEPTRA DS 8001 TAB PO; +SERTRALINE HYD100 MG PO; +WARFARIN SODIUM3 MG PO; +XANAX0.25 M1 PO; +ZOFRAN4 M2 PO; +[UNRECOGNIZED DRUG - CODE] PO
[2021-10-12] MEDS ORDERED: AMLODIPINE BESYL5 MG PO (07:47)
[2021-10-12] MEDS ORDERED: CETIRIZINE HCL10 MG PO (07:48)
[2021-10-12] MEDS ORDERED: ATORVASTATIN CA40 MG PO (07:48)
[2021-10-12] MEDS ORDERED: CLOPIDOGREL75 M2 PO (07:55)
[2021-10-12] MEDS ORDERED: CO Q-10400 MG PO (07:57)
[2021-10-12] MEDS ORDERED: FUROSEMIDE40 MG (07:59)
[2021-10-12] MEDS ORDERED: PANTOPRAZOLE SO40 MG PO (08:00)
[2021-10-12] MEDS ORDERED: PREGABALIN50 MG PO (08:00)
[2021-10-12] MEDS ORDERED: LOPRESSOR 225 MG/TAB PO (08:00)
[2021-10-12] MEDS ORDERED: DESYREL50 MG PO (08:01)
[2021-10-12] MEDS ORDERED: WARFARIN SODIUM6 MG PO (08:02)
[2021-10-12 08:27] LABS: BASO # 0.02 K/mm3 (0.02-0.10); EOS # 0.07 K/mm3 (0.04-0.40); EOS % 0.7 % (1.0-5.0); HEMOGLOBIN 9.3 g/dL (12.5-16.0); LYMPH# 1.31 K/mm3 (1.50-4.00); MEAN CELL VOLUME 82 fl (78-100); MEAN CORPUSCULAR HEMOGLOBIN 23 pg (27-31); MEAN CORPUSCULAR HGB CONC 28 g/dL (33-37); MEAN PLATELET VOLUME 8.9 fl (7.4-10.4); MONO # 0.57 K/mm3 (0.20-0.80); NEU # 8.59 K/mm3 (1.40-6.50); PLATELET COUNT 329 K/mm3 (130-400); RED BLOOD COUNT 4.03 M/mm3 (4.10-5.30); RED CELL DISTRIBUTION WIDTH 16.8 % (11.5-14.5); WHITE BLOOD COUNT 10.6 K/mm3 (4.8-10.8)
[2021-10-12 08:36] LABS: ALBUMIN 3.7 g/dL (3.4-4.8); POTASSIUM 4.7 mmol/L (3.5-5.1)
[2021-10-12 08:38] LABS: CALCIUM 9.4 mg/dL (8.3-10.5)
[2021-10-12 08:39] LABS: TOTAL PROTEIN 7.5 g/dL (6.2-8.1)
[2021-10-12 08:41] LABS: TOTAL BILIRUBIN 0.3 mg/dL (0.2-1.2)
[2021-10-12 08:48] LABS: PARTIAL THROMBOPLASTIN TIME 42.1 SECONDS (21.0-32.0)
[2021-10-12 08:51] LABS: PROTHROMBIN TIME 40.8 SECONDS (9.0-12.0)
[2021-10-12 10:19] LABS: URINE APPEARANCE CLOUDY; URINE COLOR YELLOW; URINE PROTEIN(semi-quant) TRACE mg/dL (NEGATIVE)
[2021-10-12 10:20] LABS: URINE BILIRUBIN NEGATIVE (NEGATIVE); URINE BLOOD TRACE (NEGATIVE); URINE GLUCOSE NEGATIVE (NEGATIVE); URINE KETONE NEGATIVE (NEGATIVE); URINE LEUKOCYTE ESTERASE 2+ (NEGATIVE); URINE MUCUS PRESENT (NOT PRESENT); URINE NITRATE POSITIVE (NEGATIVE); URINE UROBILINOGEN NORMAL (NORMAL)
[2021-10-12] MEDS ORDERED: MACROBID 100 M100 MG PO (10:54)
[2021-10-12 12:05] VITALS: BP 135/90
== END 2021-10-12 11:45 | disposition home or self-care (01) ==
LOC: ED 07:35
PROVIDERS: Nurse Practitioner
DX: N39.0 Urinary tract infection, site not specified (principal); R79.0 Abnormal level of blood mineral; Z79.01 Long term (current) use of anticoagulants; F41.9 Anxiety disorder, unspecified; F32.A Depression, unspecified; I10 Essential (primary) hypertension; G43.909 Migraine, unspecified, not intractable, without status migrainosus; E66.01 Morbid (severe) obesity due to excess calories; G35 Multiple sclerosis; E07.9 Disorder of thyroid, unspecified; I25.10 Atherosclerotic heart disease of native coronary artery without angina pectoris; G89.29 Other chronic pain; G47.00 Insomnia, unspecified; Z86.718 Personal history of other venous thrombosis and embolism; Z88.1 Allergy status to other antibiotic agents; Z79.899 Other long term (current) drug therapy; Z79.890 Hormone replacement therapy; W19.XXXA Unspecified fall, initial encounter; Y92.099 Unspecified place in other non-institutional residence as the place of occurrence of the external cause
CPT/HCPCS: J0696; Q9967

== ENCOUNTER → 2021-11-27 | Outpatient (CLI) | payer MEDICARE, MEDICAID ==
[~2021-11-27] MED LIST changes: +AMLODIPINE BESYL5 MG PO; +ATORVASTATIN CA40 MG PO; +CETIRIZINE HCL10 MG PO; +CLOPIDOGREL75 M2 PO; +DESYREL50 MG PO; +FUROSEMIDE40 MG; +LOPRESSOR 225 MG/TAB PO; +MACROBID 100 M100 MG PO; +PANTOPRAZOLE SO40 MG PO; +PREGABALIN50 MG PO; +WARFARIN SODIUM6 MG PO
== END ==
LOC: LAB 12:50
DX: Z79.01 Long term (current) use of anticoagulants (principal)

== ENCOUNTER → 2022-01-28 | Outpatient (CLI) | payer MEDICARE, MEDICAID ==
[2022-01-28 13:09] LABS: BASO # 0.06 K/mm3 (0.02-0.10); EOS # 0.37 K/mm3 (0.04-0.40); HEMATOCRIT 34.1 % (37.0-47.0); HEMOGLOBIN 9.6 g/dL (12.5-16.0); LYMPH# 1.76 K/mm3 (1.50-4.00); MEAN CELL VOLUME 82 fl (78-100); MEAN CORPUSCULAR HEMOGLOBIN 23 pg (27-31); MEAN CORPUSCULAR HGB CONC 28 g/dL (33-37); MEAN PLATELET VOLUME 9.5 fl (7.4-10.4); MONO # 0.55 K/mm3 (0.20-0.80); NEU # 6.49 K/mm3 (1.40-6.50); PLATELET COUNT 360 K/mm3 (130-400); RED BLOOD COUNT 4.15 M/mm3 (4.10-5.30); RED CELL DISTRIBUTION WIDTH 18.3 % (11.5-14.5); WHITE BLOOD COUNT 9.3 K/mm3 (4.8-10.8)
[2022-01-28 13:10] LABS: ALBUMIN 3.4 g/dL (3.4-4.8); POTASSIUM 3.8 mmol/L (3.5-5.1)
[2022-01-28 13:12] LABS: CALCIUM 8.9 mg/dL (8.3-10.5)
[2022-01-28 13:13] LABS: TOTAL PROTEIN 5.9 g/dL (6.2-8.1)
[2022-01-28 13:15] LABS: TOTAL BILIRUBIN 0.4 mg/dL (0.2-1.2)
[2022-01-28 13:19] LABS: MAGNESIUM 1.73 mg/dL (1.60-2.60)
[2022-01-28 13:47] LABS: URINE APPEARANCE HAZY; URINE BILIRUBIN NEGATIVE (NEGATIVE); URINE BLOOD 250 ery/uL (NEGATIVE); URINE COLOR YELLOW; URINE GLUCOSE NEGATIVE (NEGATIVE); URINE KETONE NEGATIVE (NEGATIVE); URINE PROTEIN(semi-quant) 3+ (NEGATIVE); URINE UROBILINOGEN NORMAL (NORMAL)
[2022-01-28 13:48] LABS: URINE LEUKOCYTE ESTERASE 2+ (NEGATIVE); URINE MUCUS PRESENT (NOT PRESENT); URINE NITRATE POSITIVE (NEGATIVE); URINE WBC 16-30 /hpf (0-3)
== END ==
LOC: LAB 12:54
DX: I11.0 Hypertensive heart disease with heart failure (principal); I50.9 Heart failure, unspecified

== ENCOUNTER → 2022-01-29 | Outpatient (CLI) | payer MEDICARE, MEDICAID | LOC: RAD 11:00 | DX: N32.89 Other specified disorders of bladder (principal); K83.8 Other specified diseases of biliary tract; Z87.448 Personal history of other diseases of urinary system | CPT/HCPCS: Q9967 ==

== ENCOUNTER → 2022-05-13 | Outpatient (CLI) | payer MEDICARE, MEDICAID ==
[2022-05-13 17:49] LABS: URINE APPEARANCE CLEAR; URINE BILIRUBIN NEGATIVE (NEGATIVE); URINE BLOOD NEGATIVE (NEGATIVE); URINE COLOR YELLOW; URINE GLUCOSE NEGATIVE (NEGATIVE); URINE KETONE NEGATIVE (NEGATIVE); URINE LEUKOCYTE ESTERASE TRACE (NEGATIVE); URINE MUCUS PRESENT (NOT PRESENT); URINE NITRATE NEGATIVE (NEGATIVE); URINE PROTEIN(semi-quant) TRACE (NEGATIVE); URINE UROBILINOGEN NORMAL (NORMAL)
== END ==
LOC: LAB 16:25
DX: R30.9 Painful micturition, unspecified (principal); R35.0 Frequency of micturition

== ENCOUNTER → 2022-07-20 | Outpatient (CLI) | payer MEDICAID ==
[2022-07-20 19:18] LABS: URINE COLOR YELLOW
[2022-07-20 19:19] LABS: URINE APPEARANCE CLOUDY; URINE BILIRUBIN NEGATIVE (NEGATIVE); URINE BLOOD 250 ery/uL (NEGATIVE); URINE GLUCOSE NEGATIVE (NEGATIVE); URINE KETONE NEGATIVE (NEGATIVE); URINE LEUKOCYTE ESTERASE 2+ (NEGATIVE); URINE MUCUS PRESENT (NOT PRESENT); URINE NITRATE NEGATIVE (NEGATIVE); URINE PROTEIN(semi-quant) 3+ (NEGATIVE); URINE UROBILINOGEN NORMAL (NORMAL); URINE WBC >50 /hpf (0-3)
== END ==
LOC: LAB 18:04
PROVIDERS: Family Medicine
DX: Z01.89 Encounter for other specified special examinations (principal)

== ENCOUNTER → 2022-09-29 | Outpatient (CLI) | payer MEDICARE, MEDICAID ==
[~2022-09-29] MED LIST changes: +CLARITIN10 M2 PO; +CYCLOBENZ5 MG PO; +FAMOTIDINE20 MG PO; +RISPERDAL 1M1 MG/TAB PO
[2022-09-29 13:22] LABS: ALBUMIN 3.6 g/dL (3.4-4.8); BASO # 0.04 K/mm3 (0.02-0.10); EOS # 0.26 K/mm3 (0.04-0.40); HEMATOCRIT 37.3 % (37.0-47.0); HEMOGLOBIN 10.6 g/dL (12.5-16.0); LYMPH# 1.78 K/mm3 (1.50-4.00); MEAN CELL VOLUME 86 fl (78-100); MEAN CORPUSCULAR HEMOGLOBIN 25 pg (27-31); MEAN CORPUSCULAR HGB CONC 28 g/dL (33-37); MEAN PLATELET VOLUME 9.1 fl (7.4-10.4); MONO # 0.51 K/mm3 (0.20-0.80); NEU # 6.19 K/mm3 (1.40-6.50); PLATELET COUNT 232 K/mm3 (130-400); RED BLOOD COUNT 4.33 M/mm3 (4.10-5.30); RED CELL DISTRIBUTION WIDTH 16.6 % (11.5-14.5); WHITE BLOOD COUNT 8.8 K/mm3 (4.8-10.8)
[2022-09-29 13:23] LABS: POTASSIUM 4.3 mmol/L (3.5-5.1)
[2022-09-29 13:24] LABS: CALCIUM 9.1 mg/dL (8.3-10.5)
[2022-09-29 13:27] LABS: TOTAL BILIRUBIN 0.3 mg/dL (0.2-1.2)
== END ==
LOC: LAB 12:53
DX: M17.0 Bilateral primary osteoarthritis of knee (principal); E11.9 Type 2 diabetes mellitus without complications

== ENCOUNTER 2022-10-04 20:44 | Emergency (ER) | payer MEDICARE, MEDICAID ==
[~2022-10-04] VITALS: Wt 116.8 kg
[2022-10-05] MEDS ORDERED: DOXAZOSIN2 MG PO (00:48)
[2022-10-05 00:58] LABS: BASO # 0.03 K/mm3 (0.02-0.10); EOS % 2.9 % (1.0-5.0); HEMATOCRIT 35.6 % (37.0-47.0); HEMOGLOBIN 9.9 g/dL (12.5-16.0); LYMPH# 2.22 K/mm3 (1.50-4.00); MEAN CELL VOLUME 88 fl (78-100); MEAN CORPUSCULAR HEMOGLOBIN 25 pg (27-31); MEAN CORPUSCULAR HGB CONC 28 g/dL (33-37); MEAN PLATELET VOLUME 9.8 fl (7.4-10.4); MONO # 0.73 K/mm3 (0.20-0.80); NEU # 7.21 K/mm3 (1.40-6.50); PLATELET COUNT 233 K/mm3 (130-400); RED BLOOD COUNT 4.04 M/mm3 (4.10-5.30); RED CELL DISTRIBUTION WIDTH 16.1 % (11.5-14.5); WHITE BLOOD COUNT 10.5 K/mm3 (4.8-10.8)
[2022-10-05] MEDS ORDERED: DICLOFENAC SOD100 GM TP (01:00)
[2022-10-05 01:09] LABS: ALBUMIN 3.6 g/dL (3.4-4.8)
[2022-10-05 01:10] LABS: POTASSIUM 4.3 mmol/L (3.5-5.1)
[2022-10-05 01:11] LABS: CALCIUM 9.3 mg/dL (8.3-10.5)
[2022-10-05 01:12] LABS: TOTAL PROTEIN 6.7 g/dL (6.2-8.1)
[2022-10-05 01:14] LABS: TOTAL BILIRUBIN 0.5 mg/dL (0.2-1.2)
[2022-10-05] MEDS ORDERED: AMLODIPINE BESYL5 MG PO (04:27)
[2022-10-05] MEDS ORDERED: ALPRAZOLAM0.5 MG PO (04:27)
[2022-10-05] MEDS ORDERED: ATORVASTATIN CA40 MG PO (04:28)
[2022-10-05] MEDS ORDERED: AZELASTINE137 MCG/Ac NS (04:28)
[2022-10-05] MEDS ORDERED: CLOPIDOGREL75 M2 PO (04:29)
[2022-10-05] MEDS ORDERED: CO Q-10200 MG PO (04:29)
[2022-10-05] MEDS ORDERED: ZYRTEC ALLERGY10 MG PO (04:29)
[2022-10-05 04:55] VITALS: BP 154/84
== END 2022-10-05 04:55 | disposition short-term general hospital (02) ==
LOC: ED 20:44
PROVIDERS: Physician Assistant
DX: J06.9 Acute upper respiratory infection, unspecified (principal); R06.89 Other abnormalities of breathing; R09.02 Hypoxemia; Z28.310 Unvaccinated for COVID-19; Z20.822 Contact with and (suspected) exposure to COVID-19
CPT/HCPCS: J0696; J7050

== ENCOUNTER → 2022-10-21 | Outpatient (CLI) | payer MEDICARE, MEDICAID ==
[~2022-10-21] MED LIST changes: +ALPRAZOLAM0.5 MG PO; +AZELASTINE137 MCG/Ac NS; +CO Q-10200 MG PO; +DICLOFENAC SOD100 GM TP; +DOXAZOSIN2 MG PO; +ZYRTEC ALLERGY10 MG PO
[2022-10-21 18:38] LABS: URINE APPEARANCE CLOUDY; URINE BILIRUBIN NEGATIVE (NEGATIVE); URINE COLOR RED; URINE GLUCOSE NEGATIVE (NEGATIVE); URINE KETONE NEGATIVE (NEGATIVE); URINE PROTEIN(semi-quant) 1+ (NEGATIVE); URINE UROBILINOGEN NORMAL (NORMAL)
[2022-10-21 18:39] LABS: URINE BLOOD 250 ery/uL (NEGATIVE); URINE LEUKOCYTE ESTERASE 2+ (NEGATIVE); URINE MUCUS PRESENT (NOT PRESENT); URINE NITRATE NEGATIVE (NEGATIVE); URINE WBC >50 /hpf (0-3)
== END ==
LOC: LAB 17:57
DX: R31.9 Hematuria, unspecified (principal)

== ENCOUNTER → 2022-12-22 | Outpatient (CLI) | payer MEDICARE, MEDICAID ==
[2022-12-22 15:16] LABS: POTASSIUM 4.4 mmol/L (3.5-5.1)
[2022-12-22 15:17] LABS: CALCIUM 9.3 mg/dL (8.3-10.5)
[2022-12-22 15:24] LABS: MAGNESIUM 2.08 mg/dL (1.60-2.60)
== END ==
LOC: LAB 14:23
PROVIDERS: Internal Medicine
DX: R07.9 Chest pain, unspecified (principal)

== ENCOUNTER → 2023-01-07 | Outpatient (CLI) | payer MEDICARE, MEDICAID ==
[2023-01-07 15:35] LABS: URINE COLOR YELLOW
[2023-01-07 15:36] LABS: URINE APPEARANCE CLEAR; URINE BILIRUBIN NEGATIVE (NEGATIVE); URINE BLOOD NEGATIVE (NEGATIVE); URINE GLUCOSE NEGATIVE (NEGATIVE); URINE KETONE NEGATIVE (NEGATIVE); URINE LEUKOCYTE ESTERASE 1+ (NEGATIVE); URINE MUCUS PRESENT (NOT PRESENT); URINE NITRATE NEGATIVE (NEGATIVE); URINE PROTEIN(semi-quant) TRACE (NEGATIVE); URINE UROBILINOGEN NORMAL (NORMAL)
== END ==
LOC: LAB 15:01
PROVIDERS: Family Medicine
DX: N39.0 Urinary tract infection, site not specified (principal)

== ENCOUNTER → 2023-02-08 | Outpatient (CLI) | payer MEDICARE, MEDICAID ==
[2023-02-08 16:58] LABS: URINE APPEARANCE CLEAR; URINE COLOR YELLOW
[2023-02-08 16:59] LABS: URINE BILIRUBIN NEGATIVE (NEGATIVE); URINE BLOOD NEGATIVE (NEGATIVE); URINE GLUCOSE NEGATIVE (NEGATIVE); URINE KETONE NEGATIVE (NEGATIVE); URINE LEUKOCYTE ESTERASE NEGATIVE (NEGATIVE); URINE MUCUS PRESENT (NOT PRESENT); URINE NITRATE NEGATIVE (NEGATIVE); URINE PROTEIN(semi-quant) 1+ (NEGATIVE); URINE UROBILINOGEN NORMAL (NORMAL); URINE WBC 0-1 /hpf (0-3)
== END ==
LOC: LAB 16:13
PROVIDERS: Family Medicine
DX: N39.0 Urinary tract infection, site not specified (principal)

== ENCOUNTER 2023-07-24 13:18 | Emergency (ER) | payer MEDICARE, MEDICAID ==
[~2023-07-24] VITALS: Ht 167.6 cm; Wt 119.7 kg
[2023-07-24] MEDS ORDERED: CRANBERRY PO (14:18)
[2023-07-24] MEDS ORDERED: AZO D-MANNOSE500 MG PO (14:19)
[2023-07-24] MEDS ORDERED: DOCUSATE SOD100 MG PO (14:20)
[2023-07-24] MEDS ORDERED: FLUTICASONE P15.8 ML NS (14:21)
[2023-07-24] MEDS ORDERED: GAS RELIEF125 MG PO (14:22)
[2023-07-24] MEDS ORDERED: ISOSORBIDE MONO60 M2 PO (14:23)
[2023-07-24] MEDS ORDERED: NAPHCON A 0.02515 ML OP (14:24)
[2023-07-24] MEDS ORDERED: NYAMYC100000 U/G TP (14:25)
[2023-07-24] MEDS ORDERED: POTASSIUM CH2 MEQ/ML PO (14:27)
[2023-07-24] MEDS ORDERED: VITAMIN C PUR1000 MG PO (14:28)
[2023-07-24] MEDS ORDERED: ALDACTONE 25MG25 MG PO (14:28)
[2023-07-24] MEDS ORDERED: PROBIOTIC FORM1 EACH PO (14:28)
[2023-07-24 14:38] LABS: BASO # 0.03 K/mm3 (0.02-0.10); EOS # 0.15 K/mm3 (0.04-0.40); EOS % 1.4 % (1.0-5.0); HEMATOCRIT 38.9 % (37.0-47.0); HEMOGLOBIN 12.1 g/dL (12.5-16.0); LYMPH# 1.79 K/mm3 (1.50-4.00); MEAN CELL VOLUME 96 fl (78-100); MEAN CORPUSCULAR HEMOGLOBIN 30 pg (27-31); MEAN CORPUSCULAR HGB CONC 31 g/dL (33-37); MEAN PLATELET VOLUME 9.8 fl (7.4-10.4); MONO # 0.64 K/mm3 (0.20-0.80); NEU # 7.72 K/mm3 (1.40-6.50); PLATELET COUNT 212 K/mm3 (130-400); RED BLOOD COUNT 4.05 M/mm3 (4.10-5.30); WHITE BLOOD COUNT 10.4 K/mm3 (4.8-10.8)
[2023-07-24 14:39] LABS: ALBUMIN 3.6 g/dL (3.4-4.8); POTASSIUM 4.7 mmol/L (3.5-5.1)
[2023-07-24 14:40] LABS: CALCIUM 9.9 mg/dL (8.3-10.5)
[2023-07-24 14:42] LABS: TOTAL PROTEIN 6.8 g/dL (6.2-8.1)
[2023-07-24 14:43] LABS: TOTAL BILIRUBIN 0.2 mg/dL (0.2-1.2)
[2023-07-24 14:45] LABS: PROTHROMBIN TIME 16.5 SECONDS (9.0-12.0)
[2023-07-24 16:22] LABS: URINE APPEARANCE CLEAR; URINE BILIRUBIN NEGATIVE (NEGATIVE); URINE BLOOD NEGATIVE (NEGATIVE); URINE COLOR YELLOW; URINE GLUCOSE NEGATIVE (NEGATIVE); URINE KETONE NEGATIVE (NEGATIVE); URINE LEUKOCYTE ESTERASE NEGATIVE (NEGATIVE); URINE NITRATE NEGATIVE (NEGATIVE); URINE PROTEIN(semi-quant) NEGATIVE (NEGATIVE); URINE UROBILINOGEN NORMAL (NORMAL); URINE WBC 0-1 /hpf (0-3)
[2023-07-24] MEDS ORDERED: NORCO 325 MG-51 TA1 PO (16:36)
[2023-07-24 17:09] VITALS: BP 137/81
== END 2023-07-24 17:14 | disposition home or self-care (01) ==
LOC: ED 13:18
PROVIDERS: Family Medicine
DX: G58.8 Other specified mononeuropathies (principal); G35 Multiple sclerosis; G62.9 Polyneuropathy, unspecified; E66.01 Morbid (severe) obesity due to excess calories; Z68.41 Body mass index [BMI] 40.0-44.9, adult
CPT/HCPCS: J2060

== ENCOUNTER → 2023-08-24 | Outpatient (CLI) | payer MEDICARE, MEDICAID ==
[~2023-08-24] MED LIST changes: +ALDACTONE 25MG25 MG PO; +AZO D-MANNOSE500 MG PO; +CRANBERRY PO; +DOCUSATE SOD100 MG PO; +FLUTICASONE P15.8 ML NS; +GAS RELIEF125 MG PO; +ISOSORBIDE MONO60 M2 PO; +NAPHCON A 0.02515 ML OP; +NYAMYC100000 U/G TP; +POTASSIUM CH2 MEQ/ML PO; +PROBIOTIC FORM1 EACH PO; +VITAMIN C PUR1000 MG PO
[2023-08-24 14:15] LABS: URINE WBC 0 /hpf (0-3)
[2023-08-24 14:35] LABS: URINE APPEARANCE CLEAR; URINE BILIRUBIN NEGATIVE (NEGATIVE); URINE BLOOD NEGATIVE (NEGATIVE); URINE COLOR YELLOW; URINE GLUCOSE NEGATIVE (NEGATIVE); URINE KETONE NEGATIVE (NEGATIVE); URINE LEUKOCYTE ESTERASE NEGATIVE (NEGATIVE); URINE NITRATE NEGATIVE (NEGATIVE); URINE PROTEIN(semi-quant) NEGATIVE (NEGATIVE); URINE UROBILINOGEN NORMAL (NORMAL)
== END ==
LOC: LAB 13:53
DX: R31.9 Hematuria, unspecified (principal)

== ENCOUNTER → 2023-10-12 | Outpatient (CLI) | payer MEDICARE, MEDICAID ==
[2023-10-12 11:50] LABS: URINE APPEARANCE CLEAR; URINE BILIRUBIN NEGATIVE (NEGATIVE); URINE BLOOD NEGATIVE (NEGATIVE); URINE COLOR YELLOW; URINE GLUCOSE NEGATIVE (NEGATIVE); URINE KETONE NEGATIVE (NEGATIVE); URINE LEUKOCYTE ESTERASE 1+ (NEGATIVE); URINE MUCUS PRESENT (NOT PRESENT); URINE NITRATE POSITIVE (NEGATIVE); URINE PROTEIN(semi-quant) TRACE (NEGATIVE); URINE UROBILINOGEN NORMAL (NORMAL); URINE WBC 16-30 /hpf (0-3)
== END ==
LOC: LAB 11:23
PROVIDERS: Family Medicine
DX: N39.0 Urinary tract infection, site not specified (principal)

== ENCOUNTER → 2023-12-06 | Outpatient (CLI) | payer MEDICARE, MEDICAID ==
[2023-12-06 12:39] LABS: CALCIUM 8.9 mg/dL (8.3-10.5)
== END ==
LOC: LAB 12:07
PROVIDERS: Nurse Practitioner Family

== ENCOUNTER → 2023-12-22 | Outpatient (CLI) | payer MEDICARE, MEDICAID ==
[2023-12-22 15:07] LABS: CALCIUM 8.8 mg/dL (8.3-10.5)
== END ==
LOC: LAB 14:48
PROVIDERS: Nurse Practitioner Family
DX: I10 Essential (primary) hypertension (principal); R60.9 Edema, unspecified; G47.33 Obstructive sleep apnea (adult) (pediatric); S81.802S Unspecified open wound, left lower leg, sequela; R44.3 Hallucinations, unspecified

== ENCOUNTER → 2024-04-26 | Outpatient (REF) | payer MEDICARE, MEDICAID ==
[~2024-04-26] MED LIST changes: +ACETAMINOPHEN325 M1 PO; +ALPRAZOLAM0.25 MG PO; +APRESOLINE 10MG10 MG PO; +DESYREL 100MG100 MG PO; +DOXAZOSIN MESYLA1 M1 PO; +DULOXETINE60 MG PO; +ESTRADIOL42.5 GM VG; +LOPRESSOR 550 MG/TAB PO; +PREGABALIN100 MG PO; +PREGABALIN25 MG PO; +PROAIR HFA0.09 MG/AC IH; +RISPERIDONE1 M2; +WARFARIN SOD5 MG PO; +WARFARIN SODIUM1 MG PO; +ZESTRIL5 M1 PO; +ZOFRAN ODT4 MG PO
[2024-04-26 14:52] LABS: PH-URINE 6.5 (5.0 - 8.0); URINE APPEARANCE CLEAR (CLEAR); URINE BILIRUBIN NEGATIVE (NEGATIVE); URINE BLOOD NEGATIVE (NEGATIVE); URINE COLOR YELLOW (YELLOW); URINE GLUCOSE NEGATIVE (NEGATIVE); URINE KETONE NEGATIVE (NEGATIVE); URINE LEUKOCYTE ESTERASE 1+ (NEGATIVE); URINE NITRATE NEGATIVE (NEGATIVE); URINE PROTEIN(semi-quant) NEGATIVE (NEGATIVE); URINE WBC 31-50 /hpf (0-3)
== END ==
LOC: LAB 14:29
PROVIDERS: Nurse Practitioner Family
DX: G47.33 Obstructive sleep apnea (adult) (pediatric) (principal); I10 Essential (primary) hypertension; R82.998 Other abnormal findings in urine

== ENCOUNTER → 2024-05-25 | Outpatient (REF) | payer MEDICARE, MEDICAID ==
[2024-05-25 09:06] LABS: URINE APPEARANCE CLEAR (CLEAR); URINE COLOR YELLOW (YELLOW)
[2024-05-25 09:07] LABS: PH-URINE 6.5 (5.0 - 8.0); URINE BILIRUBIN NEGATIVE (NEGATIVE); URINE BLOOD NEGATIVE (NEGATIVE); URINE GLUCOSE NEGATIVE (NEGATIVE); URINE KETONE NEGATIVE (NEGATIVE); URINE LEUKOCYTE ESTERASE NEGATIVE (NEGATIVE); URINE NITRATE NEGATIVE (NEGATIVE); URINE PROTEIN(semi-quant) NEGATIVE (NEGATIVE); URINE WBC 0-1 /hpf (0-3)
== END ==
LOC: LAB 08:19
PROVIDERS: Nurse Practitioner Family
DX: N39.0 Urinary tract infection, site not specified (principal)

== ENCOUNTER 2024-05-29 19:54 | Emergency (ER) | payer MEDICARE, MEDICAID ==
[2024-05-29 21:04] LABS: BASO # 0.04 K/mm3 (0.02-0.10); EOS # 0.28 K/mm3 (0.04-0.40); HEMATOCRIT 37.2 % (37.0-47.0); HEMOGLOBIN 11.5 g/dL (12.5-16.0); LYMPH# 2.25 K/mm3 (1.50-4.00); MEAN CELL VOLUME 97 fl (78-100); MEAN CORPUSCULAR HEMOGLOBIN 30 pg (27-31); MEAN CORPUSCULAR HGB CONC 31 g/dL (33-37); MEAN PLATELET VOLUME 9.4 fl (7.4-10.4); NEU # 10.28 K/mm3 (1.40-6.50); PLATELET COUNT 222 K/mm3 (130-400); RED BLOOD COUNT 3.82 M/mm3 (4.10-5.30); RED CELL DISTRIBUTION WIDTH 14.1 % (11.5-14.5); WHITE BLOOD COUNT 13.8 K/mm3 (4.8-10.8)
[2024-05-29 21:06] LABS: ALBUMIN 3.8 g/dL (3.4-4.8); SODIUM 137 mmol/L (136-145)
[2024-05-29 21:07] LABS: CALCIUM 9.7 mg/dL (8.3-10.5)
[2024-05-29 21:08] LABS: GLUCOSE 113 mg/dL (65-105)
[2024-05-29 21:09] LABS: TOTAL PROTEIN 6.7 g/dL (6.2-8.1)
[2024-05-29 21:10] LABS: CARBON DIOXIDE 31 mmol/L (23-31); TOTAL BILIRUBIN 0.4 mg/dL (0.2-1.2)
[2024-05-29 21:14] LABS: AST-SGOT 22 U/L (5-34)
[2024-05-29 21:15] LABS: ALT/SGPT 21 U/L (0-55); MAGNESIUM 2.12 mg/dL (1.60-2.60)
[2024-05-29 21:32] LABS: TROPONIN-I < 0.030 ng/mL (0.00-0.033)
[2024-05-29 22:07] LABS: URINE APPEARANCE SLIGHTLY CLOUDY (CLEAR); URINE COLOR YELLOW (YELLOW)
[2024-05-29 22:10] LABS: PH-URINE 6.5 (5.0 - 8.0); URINE GLUCOSE NEGATIVE (NEGATIVE); URINE KETONE NEGATIVE (NEGATIVE); URINE PROTEIN(semi-quant) NEGATIVE (NEGATIVE)
[2024-05-29 22:11] LABS: URINE BILIRUBIN NEGATIVE (NEGATIVE); URINE BLOOD NEGATIVE (NEGATIVE); URINE LEUKOCYTE ESTERASE TRACE (NEGATIVE); URINE NITRATE NEGATIVE (NEGATIVE)
[2024-05-29 22:16] LABS: URINE WBC 0-1 /hpf (0-3)
[2024-05-29] MEDS ORDERED: hydrALAZINE 10 MG TAB PO ONE (23:00)
[2024-05-29 23:18] VITALS: BP 170/88
== END 2024-05-29 23:18 | disposition home or self-care (01) ==
LOC: ED 19:54
PROVIDERS: Physician Assistant
DX: R41.82 Altered mental status, unspecified (principal)

== ENCOUNTER → 2024-09-01 | Outpatient (REF) | payer MEDICARE, MEDICAID ==
[2024-09-01 07:04] LABS: PH-URINE 5.5 (5.0 - 8.0); URINE APPEARANCE SLIGHTLY CLOUDY (CLEAR); URINE COLOR RED (YELLOW); URINE PROTEIN(semi-quant) 3+ (NEGATIVE)
[2024-09-01 07:06] LABS: URINE GLUCOSE NEGATIVE (NEGATIVE)
[2024-09-01 07:07] LABS: URINE BILIRUBIN 1+ (NEGATIVE); URINE BLOOD 3+ (NEGATIVE); URINE KETONE NEGATIVE (NEGATIVE); URINE LEUKOCYTE ESTERASE 3+ (NEGATIVE); URINE NITRATE NEGATIVE (NEGATIVE); URINE WBC >50 /hpf (0-3)
== END ==
LOC: LAB 03:00
PROVIDERS: Nurse Practitioner Family
DX: N39.0 Urinary tract infection, site not specified (principal)